=== PATIENT | male | born 1980 | race Caucasian/White ===

== ENCOUNTER 2018-06-20 15:46 | Emergency (ER) | payer OTHER ==
[~2018-06-20] VITALS: Ht 172.7 cm; Wt 99.8 kg
[~2018-06-20 15:46] MED LIST: CEPH500C PO; FAMO-63 PO; LEVO100T PO; PRED50TA PO; SULF1TAB24 PO
[2018-06-20 15:50] VITALS: BP 131/67
[2018-06-20] MEDS: IBUPROFEN 600 MG TABLET. PO ONE (16:05)
[2018-06-20] MEDS: HYDROcodone/APAP 5/325MG 1 TAB TABLET PO ONE (16:06)
--- NOTE | 2018-06-20 16:39 | RAD ---
Examination: 3 views of the right hand, 3 views right wrist and 2 views of the right forearm were performed HISTORY: Injury COMPARISON: None available FINDINGS: The alignment of the radius, ulna grossly appears unremarkable. The alignment of the carpal bones, carpal metacarpal joints, metacarpophalangeal joints, interphalangeal joints grossly appears unremarkable. No acute fracture identified. IMPRESSION: No acute osseous findings. Electronically signed by: Merritt Dillon MD (06/20/2018 4:35 PM) [facility] [place]
[2018-06-20] MEDS ORDERED: HYDR-3164 PO (17:08)
--- NOTE | 2018-06-20 17:09 | PHYS DOC ---
Past Medical History Past Medical History: Hypothyroid Past Surgical History: Other Additional Past Surgical Histo: hernia repair Alcohol Use: None Drug Use: None Adult General Chief Complaint Chief Complaint: UPPER EXTREMITY PAIN HPI HPI Patient is a 38 year old [f__sex] who presents with [] Review of Systems Review of Systems Constitutional: Denies fever or chills [] Eyes: Denies change in visual acuity, redness, or eye pain [] HENT: Denies nasal congestion or sore throat [] Respiratory: Denies cough or shortness of breath [] Cardiovascular: No additional information not addressed in HPI [] GI: Denies abdominal pain, nausea, vomiting, bloody stools or diarrhea [] : Denies dysuria or hematuria [] Musculoskeletal: Denies back pain or joint pain [] Integument: Denies rash or skin lesions [] Neurologic: Denies headache, focal weakness or sensory changes [] Endocrine: Denies polyuria or polydipsia [] All other systems were reviewed and found to be within normal limits, except as documented in this note. Current Medications Current Medications Current Medications Medications (Trade) Dose Ordered Sig/W[place] Start Time Stop Time Status Last Admin Dose Admin Acetaminophen/ Hydrocodone Bitart (Lortab 5/325) 1 tab 1X ONCE 06/20/18 16:00 06/20/18 16:01 DC 06/20/18 16:06 1 TAB Ibuprofen (Motrin) 600 mg 1X ONCE 06/20/18 16:00 06/20/18 16:01 DC 06/20/18 16:05 600 MG Allergies Allergies Allergies Coded Allergies Type Severity Reaction Last Updated Verified No Known Drug Allergies 03/25/14 No Physical Exam Physical Exam Constitutional: Well developed, well nourished, no acute distress, non-toxic appearance. [] HENT: Normocephalic, atraumatic, bilateral external ears normal, oropharynx moist, no oral exudates, nose normal. [] Eyes: PERRLA, EOMI, conjunctiva normal, no discharge. [] Neck: Normal range of motion, no tenderness, supple, no stridor. [] Cardiovascular:Heart rate regular rhythm, no murmur [] Lungs & Thorax: Bilateral breath sounds clear to auscultation [] Abdomen: Bowel sounds normal, soft, no tenderness, no masses, no pulsatile masses. [] Skin: Warm, dry, no erythema, no rash. [] Back: No tenderness, no CVA tenderness. [] Extremities: No tenderness, no cyanosis, no clubbing, ROM intact, no edema. [] Neurologic: Alert and oriented X 3, normal motor function, normal sensory function, no focal deficits noted. [] Psychologic: Affect normal, judgement normal, mood normal. [] Current Patient Data Vital Signs Vital Signs Date Time Temp Pulse Resp B/P (MAP) Pulse Ox O2 Delivery O2 Flow Rate FiO2 06/20/18 15:50 98.0 93 20 131/67 (88) 98 Room Air 98.0 EKG EKG [] Radiology/Procedures Radiology/Procedures PROCEDURE: WRIST 3V RIGHT Examination: 3 views of the right hand, 3 views right wrist and 2 views of the right forearm were performed HISTORY: Injury COMPARISON: None available FINDINGS: The alignment of the radius, ulna grossly appears unremarkable. The alignment of the carpal bones, carpal metacarpal joints, metacarpophalangeal joints, interphalangeal joints grossly appears unremarkable. No acute fracture identified. IMPRESSION: No acute osseous findings. Electronically signed by: Merritt Dillon MD (06/20/2018 4:35 PM) [facility] DICTATED and SIGNED BY: MERRITT DILLON MD DATE: 06/20/181631 PROCEDURE: HAND RIGHT 3V Examination: 3 views of the right hand, 3 views right wrist and 2 views of the right forearm were performed HISTORY: Injury COMPARISON: None available FINDINGS: The alignment of the radius, ulna grossly appears unremarkable. The alignment of the carpal bones, carpal metacarpal joints, metacarpophalangeal joints, interphalangeal joints grossly appears unremarkable. No acute fracture identified. IMPRESSION: No acute osseous findings. Electronically signed by: Merritt Dillon MD (06/20/2018 4:35 PM) [facility] DICTATED and SIGNED BY: MERRITT DILLON MD DATE: 06/20/181631 PROCEDURE: FOREARM RIGHT Examination: 3 views of the right hand, 3 views right wrist and 2 views of the right forearm were performed HISTORY: Injury COMPARISON: None available FINDINGS: The alignment of the radius, ulna grossly appears unremarkable. The alignment of the carpal bones, carpal metacarpal joints, metacarpophalangeal joints, interphalangeal joints grossly appears unremarkable. No acute fracture identified. IMPRESSION: No acute osseous findings. Electronically signed by: Merritt Dillon MD (06/20/2018 4:35 PM) [facility] DICTATED and SIGNED BY: MERRITT DILLON MD DATE: 06/20/18 1632 Course & Med Decision Making Course & Med Decision Making Pertinent Imaging studies reviewed. (See chart for details) 1650: Discussed xray results with pt with no findings of acute fxs/injury. On reexam patient remains neuro and vascular intact in right upper extremity with range of motion intact in fingers/hand/wrist/elbow. Radial 2+ brisk capillary refill. Will have wound cleansed and dressing applied to abrasions to right hand and forearm. Discussed plans for [place] wrap to hand/wrist/forearm and sling offered however patient feels he will not need the sling. Pt was given dose of Ibuprofen/Cresbard and ice pack. Will provide Rx for Cresbard for home with education on use of NSAids. RICE acronym discussed. Discussed if sxs persist he should f/ u with orthopedic doctor for further care/evaluation. Home wound care was discussed. Pt was UTD on tetanus w/in past 5 yrs. time of discharge patient is in no visible distress. Discharge instructions were discussed and education provided on signs and symptoms to return to ER for. Will provide orthopedic referral information on discharge paperwork. Dragon Disclaimer Dragon Disclaimer This electronic medical record was generated, in whole or in part, using a voice recognition dictation system. Departure Departure Impression: Primary Impression: Injury of wrist, right Additional Impressions: Injury of hand, right Right forearm injury Abrasion Contusion Disposition: 01 HOME, SELF-CARE Condition: STABLE Referrals: NO PCP (PCP) ANNIKA HOWARD II, MD orthopedic doctor Patient Instructions: Abrasions, Contusion, Elastic Bandage and RICE, Hand Contusion Additional Instructions: Ibuprofen as directed on container as needed for pain. Tylenol can be taken if not taking the prescribed Cresbard medication. If symptoms persist follow-up with orthopedic doctor for further evaluation/ care. Monitor wounds for signs of infection- follow up with primary doctor with any concerns. Scripts Hydrocodone/Apap 5-325 (NORCO 5-325 TABLET) 1 Each Tablet 1 TAB PO PRN Q6HRS PRN for PAIN, #10 TAB 0 Refills Prov: TYSON VELAZQUEZ APRN 06/20/18 Problem Qualifiers TYSON VELAZQUEZ APRN Jun 20, 2018 17:09
== END 2018-06-20 17:36 | disposition home or self-care (01) ==
LOC: ER 15:46
DX: S50.11XA Contusion of right forearm, initial encounter (principal); S60.211A Contusion of right wrist, initial encounter; S60.221A Contusion of right hand, initial encounter; E03.9 Hypothyroidism, unspecified; X58.XXXA Exposure to other specified factors, initial encounter; Y93.89 Activity, other specified; Y92.89 Other specified places as the place of occurrence of the external cause; Y99.8 Other external cause status
CPT/HCPCS: 29125; 73090; 73110; 73130; 99283-25